=== PATIENT | female | born 1945 | race Caucasian/White ===

== ENCOUNTER 2018-05-05 09:31 | Outpatient (CLI) | payer MEDICARE ==
--- NOTE | 2018-05-05 12:11 | XRay Report ---
AP ABDOMEN: HISTORY: Abdominal pain. The abdominal gas pattern is unremarkable. No masses or organomegaly is identified and there is no gross evidence of free air or fluid. No significant soft tissue calcifications are noted. There is a curvilinear density within the pelvis near midline, the significance of this is unclear but it is unchanged since 2013. IMPRESSION: Unremarkable abdomen.
--- NOTE | 2018-05-06 15:53 | Vascular Lab Report ---
LOWER EXTREMITY ARTERIAL DUPLEX: REASON FOR EXAM: Bilateral ischemic pain. COMMENTS ON THE RIGHT: Biphasic waveforms are seen proximally. Biphasic waveforms are seen distally. No significant velocity gradients are identified. No significant plaque is identified. Findings are consistent with normal perfusion. Findings are consistent with the ability to heal distal wounds. COMMENTS ON THE LEFT: Biphasic waveforms are seen proximally. Biphasic waveforms are seen distally. No significant velocity gradients are identified. No significant plaque is identified. Findings are consistent with normal perfusion. Findings are consistent with the ability to heal distal wounds. IMPRESSION: RIGHT: Essentially normal arterial flow. LEFT:Essentially normal arterial flow. Findings are not consistent with ischemic rest pain.
== END 2018-05-05 09:32 | disposition home or self-care (01) ==
LOC: VAS 09:31
PROVIDERS: ATTEND Internal Medicine
DX: R93.41 Abnormal radiologic findings on diagnostic imaging of renal pelvis, ureter, or bladder (principal); I73.9 Peripheral vascular disease, unspecified
CPT/HCPCS: 74018; 93925

== ENCOUNTER 2022-01-09 15:11 | Emergency (ER) | payer MEDICARE ==
--- NOTE | 2022-01-09 15:57 | XRay Report ---
LEFT HIP 2 VIEWS INDICATION: hip pain after fall. COMPARISON: None. IMPRESSION: No acute osseous or soft tissue abnormality. No significant DJD. IUD is noted in the pelvis. Signer Name: Gilbert Pitt Jr, MD Signed: 01/09/2022 3:53 PM Workstation Name: [id number]
[2022-01-09] MEDS ORDERED: diazePAM 5 MG TAB PO ONE (16:36)
--- NOTE | 2022-01-09 16:42 | Emergency Department Report ---
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 Family states that the patient pain is worse with ambulation as the pain radiates from the left hip distally to the left thigh and left calf as well as left foot. Patient denies head or neck injuries, dizziness, syncope, seizures, nausea and vomiting, dysuria, urinary frequency and urgency, low back pain, chest pain, shortness of breath, numbness and tingling or weakness of lower extremities bilaterally for neck pain and head injury. 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 denies: headache, neck pain, numbness, chest paint, shortness of breath, abdominal pain, unable to walk, lightheaded, vertigo, confusion, other - Related Data Previous Rx's Medication Instructions Recorded Last Taken Type Naproxen 500 mg PO Q12H PRN #24 tab 01/09/22 Unknown Rx traMADoL [Ultram] 50 mg PO Q6HR PRN #12 tablet 01/09/22 Unknown Rx Allergies Allergy/AdvReac Type Severity Reaction Status Date / Time No Known Allergies Allergy Verified 01/09/22 15:19 ED Review of Systems ROS: Stated complaint: FALL INJURY/RT HIP Other details as noted in HPI Constitutional: denies: chills, fever Eyes: denies: eye pain, eye discharge, vision change ENT: denies: ear pain, throat pain Respiratory: denies: cough, shortness of breath, wheezing Cardiovascular: denies: chest pain, palpitations Endocrine: no symptoms reported Gastrointestinal: denies: abdominal pain, nausea, vomiting, diarrhea Genitourinary: denies: urgency, dysuria, discharge Musculoskeletal: arthralgia (left hip pain), other (Diffuse left leg pain). denies: back pain, joint swelling Skin: denies: rash, lesions Neurological: denies: headache, weakness, paresthesias Psychiatric: denies: anxiety, depression Hematological/Lymphatic: denies: easy bleeding, easy bruising ED Past Medical Hx - Past Medical History Previous Medical History?: Yes Hx Hypertension: Yes Hx CVA: Yes Additional medical history: thyroid - Surgical History Past Surgical History?: Yes Additional Surgical History: thyroid surgery - Medications Home Medications: Home Medications Medication Instructions Recorded Confirmed Last Taken Type Naproxen 500 mg PO Q12H PRN #24 tab 01/09/22 Unknown Rx traMADoL [Ultram] 50 mg PO Q6HR PRN #12 tablet 01/09/22 Unknown Rx ED Physical Exam - General Limitations: Language Barrier General appearance: alert, in no apparent distress - Head Head exam: Present: atraumatic, normocephalic, normal inspection - Eye Eye exam: Present: normal appearance, PERRL, EOMI Pupils: Present: normal accommodation - ENT ENT exam: Present: normal exam, normal orophraynx, mucous membranes moist, TM's normal bilaterally, normal external ear exam - Neck Neck exam: Present: normal inspection, full ROM. Absent: tenderness, lymphadenopathy - Respiratory Respiratory exam: Present: normal lung sounds bilaterally. Absent: respiratory distress, wheezes, rales, rhonchi, chest wall tenderness, accessory muscle use - Cardiovascular Cardiovascular Exam: Present: regular rate, normal rhythm, normal heart sounds. Absent: systolic murmur, diastolic murmur, rubs, gallop - GI/Abdominal GI/Abdominal exam: Present: soft, normal bowel sounds. Absent: tenderness, guarding, rebound, rigid, hyperactive bowel sounds, hypoactive bowel sounds, organomegaly, mass - Extremities Exam Extremities exam: Present: normal inspection, full ROM, tenderness (Palpable left hip tenderness), calf tenderness (Left calf tenderness), other (Left ankle and left thigh tenderness). Absent: normal capillary refill, pedal edema, joint swelling - Back Exam Back exam: Present: normal inspection, full ROM. Absent: tenderness, CVA tenderness (R), CVA tenderness (L), muscle spasm, paraspinal tenderness, vertebral tenderness - Neurological Exam Neurological exam: Present: alert, oriented X3, CN II-XII intact, normal gait, reflexes normal - Psychiatric Psychiatric exam: Present: normal affect, normal mood - Skin Skin exam: Present: warm, dry, intact, normal color. Absent: rash ED Course Vital Signs 01/09/22 15:14 Temperature 97.1 F L Pulse Rate 100 H Respiratory 18 Rate Blood Pressure 183/102 [Left] O2 Sat by Pulse 99 Oximetry ED Medical Decision Making - Radiology Data Radiology results: report reviewed, image reviewed [facility] [address] [place] [address] XRay Report Signed Patient: KIKO LOREDO MR# : [id number] : 1945 Acct:[id number] Age/Sex: 76 / F ADM Date: 01/09/22 Loc: ED Attending Dr: Ordering Physician: STEPAN NAIR MD Date of Service: 01/09/22 Procedure(s): XR hip 2-3V LT Accession Number(s): [id number] cc: STEPAN NAIR MD Fluoro Time In Minutes: LEFT HIP 2 VIEWS INDICATION: hip pain after fall. COMPARISON: None. IMPRESSION: No acute osseous or soft tissue abnormality. No significant DJD. IUD is noted in the pelvis. 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 Family states that the patient pain is worse with ambulation as the pain radiates from the left hip distally to the left thigh and left calf as well as left foot. In the ED, patient is alert and oriented x3 and is not in any distress. Patient however appears to be in pain. Patient was treated for pain in the ED. Left hip x-ray showed no acute fractures or subluxations. Patient symptoms are likely musculoskeletal injury or muscle strain resulting in radicular pain and muscle spasm. Patient was therefore discharged home on pain medications and advised to follow-up with her primary care physician in 7 to 10 days for reevaluation. Patient is advised return to the ED immediately if symptoms get worse. - Differential Diagnosis Hip fracture; muscle strain; muscle spasm; radicular pain Critical care attestation.: If time is entered above; I have spent that time in minutes in the direct care of this critically ill patient, excluding procedure time. ED Disposition Clinical Impression: Contusion of left hip and thigh Qualifiers: Encounter type: initial encounter Qualified Code(s): S70.02XA - Contusion of left hip, initial encounter; S70.12XA - Contusion of left thigh, initial encounter Muscle strain of left lower extremity Qualifiers: Encounter type: initial encounter Qualified Code(s): S86.912A - Strain of unspecified muscle(s) and tendon(s) at lower leg level, left leg, initial encounter Disposition: 01 HOME / SELF CARE / HOMELESS Is pt being admited?: No Does the pt Need Aspirin: No Condition: Stable Instructions: Contusion, [id number], Quadriceps Contusion, [id number], Muscle Strain, [id number]-vs-[id number], Hip Sprain Additional Instructions: La radiografa de cadera izquierda no mostr fracturas agudas ni subluxaciones. Por lo tanto, es probable que las lesiones venecia musculoesquelticas y que afecten los nervios de la cadera izquierda. Por lo tanto, tome los medicamentos con alimentos, avery muchos lquidos y ronald un seguimiento con joyner mdico de atencin primaria en 7 a 10 astudillo para juan j reevaluacin. Regrese al servicio de urgencias inmediatamente si los sntomas empeoran. Prescriptions: Naproxen 500 mg PO Q12H PRN #24 tab PRN Reason: Pain , Severe (7-10) traMADoL [Ultram] 50 mg PO Q6HR PRN #12 tablet PRN Reason: Pain Referrals: SHAHBAZ BYRD MD [Staff Physician] - 3-5 Days Time of Disposition: 16:47 Print Language: JORDANIAN
[2022-01-09] MEDS: ACETAMINOPHEN 500 MG TAB PO ONE ×2 (17:58→18:22)
[2022-01-09] MEDS: IBUPROFEN 600 MG TAB PO ONE ×2 (17:59→18:21)
[2022-01-09 18:25] VITALS: BP 179/75
== END 2022-01-09 18:15 | disposition home or self-care (01) ==
LOC: ED 15:11
DX: S70.02XA Contusion of left hip, initial encounter (principal); S70.12XA Contusion of left thigh, initial encounter; W19.XXXA Unspecified fall, initial encounter; Y93.89 Activity, other specified; Y92.89 Other specified places as the place of occurrence of the external cause; Y99.8 Other external cause status
CPT/HCPCS: 99283